=== PATIENT | female | born 1960 | race Hispanic/Latino ===

== ENCOUNTER 2024-05-09 12:35 | Emergency (ER) | payer BC ==
[~2024-05-09] VITALS: Ht 162.6 cm; Wt 92.5 kg
[2024-05-09 12:37] VITALS: TEMP 98
--- NOTE | 2024-05-09 12:48 | ERN ---
General Chief Complaint: Dizzy/Light Headed Stated Complaint: DIZZINESS Time Seen by MD: 12:37 History of Present Illness Initial Comments 63-year-old female, history of hypertension, [place] for near syncopal episode. Patient reports that over the last three days or so she has had multiple episodes of watery diarrhea. She has had a few episodes of nausea without vomiting. She has had decreased p.o. intake. Generalized abdominal cramping. While at the [employer] today she had an episode where she felt faint. She did not actually have a syncopal episode. She did not fall. She denies any fevers cough congestion. Prior to the near syncopal episode she denies any dyspnea or chest pain or palpitations. Allergies: Coded Allergies: No Known Allergies (Unverified Allergy, Unknown, 05/09/24) Past Medical History Past Medical History: Hypertension Past Surgical History: Other ROS Dictation CONSTITUTIONAL: No chills, no fever, no weakness, no diaphoresis, no malaise. HEAD/FACE: No signs of trauma. EENT: No eye pain, no blurred vision, no tearing, no double vision, no ear pain, no ear discharge, no nose pain, no nasal congestion, no throat pain, no th roat swelling, no mouth pain. RESPIRATORY: No cough, no orthopnea, no SOB, no stridor, no wheezing. CARDIOVASCULAR: Near-syncope GASTROINTESTINAL/ABDOMINAL: Recent nausea or vomiting diarrhea GENITOURINARY: No abnormal discharge, no dysuria, no frequent urination, no hematuria. No complaints of pain in the genitals. MUSCULOSKELETAL: No back pain, no gout, no joint pain, no joint swelling, no muscle pain, no muscle stiffness, no neck pain. INTEGUMENTARY: No change in color, no change in hair/nails, no dryness, no lesion, no lumps, no rash. NEUROLOGICAL/PSYCH: No anxiety, not depressed, no emotional problem, no headache, no numbness, no pre-existing deficit, no history of seizures, no tremors, no weakness. HEMATOLOGIC/LYMPHATIC: Not anemic, no history of blood clots, no apparent bleeding, no bruising, glands not swollen. All Systems Negative, Except as Noted. Physical Exam Physical Exam Dictation VITAL SIGNS: Reviewed. GENERAL APPEARANCE: Alert, oriented x3, no acute distress, obese. HEAD AND FACE: Non-traumatic. EYES: PERRL, pink conjunctivas, eyelid no trauma, anterior chamber clear. EARS: Pinnas intact and no signs of trauma or erythema. Ear canals clear and no discharge. TMs no erythema. NOSE: No discharge, no bleeding. OROPHARYNX: Mouth normal, teeth no caries, tongue pink. Pharynx clear, no erythema. Tonsils no exudates, no abscesses noted. Mucous membrane moist. NECK: Supple, non-tender, no thyromegaly, no masses, no JVD, no bruits. BREAST: Deferred. CHEST: No tenderness, no crepitus, no paradoxical movement, no retractions. LUNGS: Clear, well-ventilated, symmetric, no rales, no wheezing, no rhonchi, no stridor, good breath sounds bilaterally. HEART: Regular rate, regular rhythm, no murmur, no gallops. VASCULAR: No peripheral edema. ABDOMEN: Soft, positive bowel sounds, nondistended, no guarding, nontender, no r ebound, no masses no hepatomegaly, no splenomegaly, no Choi's sign, no hernias. RECTAL: Deferred. GENITAL: Deferred. NEUROLOGICAL: Normal speech, gross motor function intact, gross sensory function intact. MUSCULOSKELETAL: Neck nontender, full range of motion, back nontender, full range of motion. EXTREMITIES: Nontender, full range of motion. SKIN: Color pink, dry, no turgor, no rash, no lacerations, no abrasions, no contusions. LYMPHATICS: Deferred. Results Laboratory and Microbiology Lab and Micro Result Laboratory Tests Test 05/09/24 12:55 05/09/24 13:49 White Blood Count 8.8 K/uL (4.8-10.8) Red Blood Count 5.60 MIL/uL (4.00-5.50) H Hemoglobin 14.8 g/dL (12.0-16.0) Hematocrit 44.7 % (36-48) Mean Corpuscular Volume 79.8 fL (79-99) Mean Corpuscular Hemoglobin 26.4 pg (27.0-33.0) L Mean Corpuscular Hemoglobin Concent 33.1 g/dL (32.0-36.0) Red Cell Distribution Width 13.4 % (11.0-15.5) Platelet Count 249 K/uL (130-400) Mean Platelet Volume 10.1 fL (7.5-10.5) Immature Granulocyte % (Auto) 0.2 % (0-1) Neutrophils (%) (Auto) 80.9 % (40.0-77.0) H Lymphocytes (%) (Auto) 11.1 % (21.0-51.0) L Monocytes (%) (Auto) 7.6 % (3.0-13.0) Eosinophils (%) (Auto) 0.0 % (0.0-8.0) Basophils (%) (Auto) 0.2 % (0.0-5.0) Neutrophils # (Auto) 7.1 K/uL (1.8-7.7) Lymphocytes # (Auto) 1.0 K/uL (1.0-4.8) Monocytes # (Auto) 0.7 K/uL (0.1-1.0) Eosinophils # (Auto) 0.00 K/uL (0.00-0.70) Basophils # (Auto) 0.02 K/uL (0.00-0.20) Absolute Immature Granulocyte (auto 0.02 K/uL (0-1) Nucleated Red Blood Cells 0.0 % (0.0-0.19) Sodium Level 133 mmol/L (136-145) L Potassium Level 3.4 mmol/L (3.5-5.1) L Chloride Level 96 mmol/L (101-111) L Carbon Dioxide Level 28 mmol/L (21-32) Blood Urea Nitrogen 6 mg/dL (7-18) L Creatinine 0.7 mg/dL (0.5-1.0) Glomerular Filtration Rate Calc 97 mL/min (>90) Random Glucose 109 mg/dL (70-105) H Total Calcium 9.1 mg/dL (8.5-10.1) Total Creatine Kinase 73 U/L (21-232) Troponin I High Sensitivity 19.5 ng/L (4-50) Urine Color LIGHT-YELLOW (YELLOW) Urine Appearance CLEAR (CLEAR) Urine pH 7.5 (5.0-8.0) Urine Specific [place] 1.011 (1.001-1.031) Urine Protein NEGATIVE mg/dL (NEGATIVE) Urine Glucose (UA) NEGATIVE mg/dL (NEGATIVE) Urine Ketones 20 mg/dL (NEGATIVE) H Urine Occult Blood NEGATIVE (NEGATIVE) Urine Nitrate NEGATIVE (NEGATIVE) Urine Bilirubin NEGATIVE mg/dL (NEGATIVE) Urine Urobilinogen 0.2 mg/dL (0.2-1.0) Urine Leukocyte Esterase NEGATIVE Charlette/uL Urine RBC 0-1 /HPF (0-1) Urine WBC 2-5 /HPF (0-1) H Urine Squamous Epithelial Cells RARE /HPF (0-2) Urine Bacteria RARE /HPF (None Seen) MDM CC: Near syncopal episode, nausea and diarrhea for the last few days Historian: Patient Comorbidities: Hypertension Limitations by social determinants of health: None Differential diagnosis: Dehydration, cardiac syncope, vasovagal syncope, diarrheal illness, other. Vital signs: Stable, remained stable in the ER. Clinical exam is unremarkable. Cranial nerves are intact. No clinical signs of heart failure. She was nontoxic in appearance. Family agrees membranes. Labs (independently ordered and interpreted by me ): CBC normal, no leukocytosis, mild left shift. Chemistry panel shows mild dehydration, otherwise unremarkable. CK is normal. Troponin is normal. Urinalysis unremarkable. EKG: Sinus rhythm, rate 97, normal axis, good R-wave progression, intervals stable. No STEMI. Independently interpreted by me. CT head without contrast ( independently interpreted by me ): No acute bleeding or abnormalities. CXR (independently interpreted by me): No cardiomegaly pleural effusions or focal infiltrates. Treatment in ED: 1 L normal saline. Patient was no signs of cardiac syncope. EKGs normal troponin is normal. Likely related to dehydration. Abdomen soft nontender nondistended, no signs of any life threats, surgical pathology, SIRS, sepsis or other. Likely a simple diarrheal illness likely caused by a virus. Causing dehydration. She was rehydrated here in the ER. We will discharge with ondansetron and recommend PCP follow up. ED Course Orders Procedure Category Date Status Time Cbc With Differential LAB 05/09/24 Complete 12:37 Cardiac Panel LAB 05/09/24 Complete 12:37 Urinalysis Profile LAB 05/09/24 Complete 12:37 Chest 1vw RAD 05/09/24 Resulted 12:37 Ct Head/Brain W/O CT 05/09/24 Resulted Contrast 12:37 12 Lead Ekg Tracing- EKG 05/09/24 Complete Technical 12:37 0.9%Nacl 1000ml (Ns PHA 05/09/24 Complete 1000ml) 13:00 Basic Metabolic Panel LAB 05/09/24 Complete 12:37 Current Medications Medications (Trade) Dose Ordered Sig/Marcelle Route PRN Reason Start Time Stop Time Status Last Admin Dose Admin Sodium Chloride 1,000 ml @ 0 mls/hr ONCE ONCE IV 05/09/24 13:00 05/09/24 13:01 DC 05/09/24 12:54 Vital Signs Date Time Temp Pulse Resp B/P (MAP) Pulse Ox O2 Delivery O2 Flow Rate FiO2 05/09/24 14:07 98 18 163/90 99 Room Air* 0 21 05/09/24 13:04 92 14 185/93 100 Room Air* 0 21 05/09/24 12:37 98.1 93 20 149/80 95 Room Air DX & DISP Disposition: Discharge Departure Impression: Primary Impression: Dehydration Additional Impressions: Syncope, Diarrhea Condition: Stable Scripts Ondansetron (Ondansetron Odt) 4 Mg Tab.rapdis 1 TAB PO Q6HPRN PRN for nausea/vomiting for 3 Days, #10 TAB 0 Refills Prov: JOSE GARCIA DO 05/09/24 Additional Instructions: You had a syncopal episode today. As we discussed, this is likely due to dehydration. There are no signs of significant brain or cardiac disease causing the syncopal episode. Your vital signs have been stable here in the ER. Your EKGs normal. Your chest x-ray is normal. The CT scan of your brain is normal. The lab work ( CBC, BMP, CK, troponin, urinalysis) is unremarkable. You received normal saline through an IV here in the ER. I have prescribed ondansetron dissolvable tabs. You can use this to prevent dehydration. Take this 3 times a day for nausea and vomiting as needed. Be sure to drink plenty of liquids. An electrolyte solution such as Gatorade or Pedialyte as good choice. Do not eat heavy feeds or irritating foods. Start with the BR a T (bananas, rice, applesauce, toast ) diet. Advance her diet slowly as tolerated after that. Please return to the emergency department if you have any chest pains, palpitations, or other episodes of syncope. Otherwise, you can follow up with the primary doctor regarding your diarrheal illness. As we discussed, most diarrheal illnesses we will pass on their own without treatment. Referrals: SELF,REFERRAL (PCP) JOSE GARCIA DO May 09, 2024 12:48
[2024-05-09] MEDS: 0.9%NACL 1000ML 1,000 ML IV ONE (12:54)
--- NOTE | 2024-05-09 12:54 | EKG ---
[facility] Test Date: 2024-05-09 Test Time: 12:47:52 Pat Name: RAIN DIAL Department: ED Room: Gender: F Coal Picker: [id number] : 1960 Requested By: JOSE AGRCIA Order Number: [id number] Reading MD: Angelic Mckeon Measurements Intervals Golva Rate: 97 P: 17 MA: 191 QRS: 39 QRSD: 80 T: 65 QT: 359 QTc: 456 Interpretive Statements Sinus rhythm No previous ECG available for comparison Electronically Signed On 05-10-2024 15:37:21 VIDEO [employer] by Angelic Mckeon Please click the below link to view image of tracing.
[2024-05-09 13:13] LABS: BASOPHILS # (AUTO) 0.02 K/uL (0.00-0.20); BASOPHILS % (AUTO) 0.2 % (0.0-5.0); HEMATOCRIT 44.7 % (36-48); IMMATURE GRANULOCYTE ABSOLUTE 0.02 K/uL (0-1); LYMPHOCYTES % (AUTO) 11.1 % (21.0-51.0); MEAN CORPUSCULAR HEMOGLOBIN 26.4 pg (27.0-33.0); MEAN CORPUSCULAR HGB CONC 33.1 g/dL (32.0-36.0); MEAN CORPUSCULAR VOLUME 79.8 fL (79-99); MONOCYTES # (AUTO) 0.7 K/uL (0.1-1.0); MONOCYTES % (AUTO) 7.6 % (3.0-13.0); NEUTROPHILS # (AUTO) 7.1 K/uL (1.8-7.7); NEUTROPHILS % (AUTO) 80.9 % (40.0-77.0); PLATELET COUNT (AUTO) 249 K/uL (130-400); RED CELL DISTRIBUTION WIDTH 13.4 % (11.0-15.5); WHITE BLOOD COUNT (AUTO) 8.8 K/uL (4.8-10.8)
[2024-05-09 13:28] LABS: CREATININE 0.7 mg/dL (0.5-1.0); POTASSIUM 3.4 mmol/L (3.5-5.1)
--- NOTE | 2024-05-09 13:50 | HMCIMG ---
CT HEAD WITHOUT CONTRAST INDICATION: Syncope dizziness TECHNIQUE: Noncontrast axial helical CT images from the vertex through the skull base using 5 mm slice thickness without contrast material. CT was performed with one or more of the following dose reduction techniques: Automated exposure control, adjustment of the mA and/or kV according to patient size, or use of iterative reconstruction technique. COMPARISON: None FINDINGS: Scattered and coalescent subcortical and periventricular white matter low attenuating areas likely represent residual of chronic small vessel arteriopathy and/or remote vascular insult. The cerebral and cerebellar hemispheres are age-appropriate in appearance. No evidence for abnormal extra-axial fluid collections or masses. The ventricles and sulci are normal in size and configuration. No evidence for intracranial parenchymal, epidural, or subdural hemorrhage, mass effect or midline shift. The longo-white matter differentiation is well preserved. No secondary evidence to suggest acute ischemia. Mild calcific plaque is present along the perez of the cavernous segments of both internal carotid arteries. The brainstem and cerebellum appear normal. The visualized orbits appear unremarkable. The visible paranasal sinuses and mastoid air cells are clear. The calvarium appears normal. IMPRESSION: Chronic white matter ischemic changes and arteriosclerotic disease as described, without superimposed acute component.
--- NOTE | 2024-05-09 14:03 | HMCIMG ---
PORTABLE CHEST RADIOGRAPH INDICATION: SYNCOPE COMPARISON: None FINDINGS: Heart size is normal. Mild calcific plaque is present along the aortic arch perez. The pulmonary vascularity and valencia appear normal. No abnormal pulmonary parenchymal opacity or consolidation identified. No significant pleural effusion noted. No pneumothorax detected. IMPRESSION: No radiographic evidence for any acute cardiopulmonary process.
[2024-05-09 14:06] LABS: APPEARANCE,URINE CLEAR (CLEAR); BILIRUBIN,URINE NEGATIVE (NEGATIVE); GLUCOSE, URINE (UA) NEGATIVE (NEGATIVE); KETONES,URINE 20 mg/dL (NEGATIVE); LEUKOCYTE ESTERASE ,URINE NEGATIVE Leu/uL (NEGATIVE); NITRATE,URINE NEGATIVE (NEGATIVE); OCCULT BLOOD,URINE NEGATIVE (NEGATIVE); PH,URINE 7.5 (5.0-8.0); PROTEIN,URINE NEGATIVE (NEGATIVE); UROBILINOGEN,URINE 0.2 mg/dL (0.2-1.0)
[2024-05-09 14:07] VITALS: BP 163/90; PULSE 98; RESP 18; O2SAT 99
[2024-05-09 14:07] LABS: ADD UA MICROSCOPIC YES; COLOR,URINE LIGHT-YELLOW (YELLOW)
[2024-05-09 14:09] LABS: BACTERIA,URINE RARE /HPF (None Seen); MUCUS,URINE RARE LPF (None Seen); RBC,URINE 0-1 /HPF (0-1); SQUAMOUS EPITHELIAL CELL,UR RARE /HPF (0-2)
[2024-05-09] MEDS ORDERED: ONDA-243 PO (14:26)
== END 2024-05-09 14:44 | disposition home or self-care (01) ==
LOC: EDH 12:35
DX: E86.0 Dehydration (principal); R55 Syncope and collapse; R19.7 Diarrhea, unspecified; I10 Essential (primary) hypertension
CPT/HCPCS: 99284; 96360; 70450; 71045; 82550; 84484; 80048; 85025; 81001; 36415; 93005; J7030